=== PATIENT | male | born 1970 | race Caucasian/White ===

== ENCOUNTER → 2018-10-19 | Outpatient (CLI) | payer BC ==
[~2018-10-19] MED LIST: LEXAPRO 10MG10 MG PO; NORCO 325 MG-51 TAB PO
== END ==
LOC: COL.RAD 12:47
DX: H93.19 Tinnitus, unspecified ear (principal); G93.89 Other specified disorders of brain
CPT/HCPCS: A9585

== ENCOUNTER 2018-12-28 14:46 | Outpatient (RCR) | payer BC | END 2019-03-28 | disposition home or self-care (01) | LOC: WSC | DX: R42 Dizziness and giddiness (principal) ==

== ENCOUNTER → 2023-01-13 | Outpatient (CLI) | payer OTHER | LOC: COL.RAD 08:30 | DX: G93.89 Other specified disorders of brain (principal); R42 Dizziness and giddiness | CPT/HCPCS: A9575 ==

== ENCOUNTER → 2023-01-13 | Outpatient (CLI) | payer OTHER | LOC: COL.RAD 08:30 | DX: G93.89 Other specified disorders of brain (principal); R42 Dizziness and giddiness ==